=== PATIENT | male | born 1970 | race Caucasian/White ===

== ENCOUNTER 2020-02-08 14:57 | Emergency (ER) | payer OTHER ==
[~2020-02-08] VITALS: Ht 177.8 cm; Wt 99.8 kg
[2020-02-08 15:48] LABS: ABSOLUTE LYMPHOCYTES 0.9 thou/uL (0.8-5.3); ABSOLUTE MONOCYTES 0.3 thou/uL (0.0-1.2); ABSOLUTE NEUTROPHILS 3.1 thou/uL (1.6-8.1); BASOPHILS 0.7 %; EOSINOPHILS 0.3 %; HEMATOCRIT 44.4 % (42.0-52.0); HEMOGLOBIN 15.9 gm/dL (14.0-18.0); LYMPHOCYTES 20.1 %; MCH 32.2 pg (26.0-34.0); MCHC 35.9 g/dL (28.0-37.0); MCV 89.7 fL (80.0-100.0); MONOCYTES 8.1 %; MPV 7.9 fl. (7.2-11.1); NUCLEATED RBCS 0 /100WBC; PLATELET COUNT* 239 thou/uL (150-400); POLYS 70.8 %; RBC 4.95 mil/uL (4.50-6.00); RDW-CV 12.5 % (10.5-14.5); WBC 4.3 thou/uL (4.0-11.0)
[2020-02-08 15:58] LABS: CALCIUM 8.6 mg/dL (8.5-10.1); CREATININE 1.1 mg/dL (0.6-1.3); POTASSIUM 4.2 mmol/L (3.5-5.1)
[2020-02-08 16:03] LABS: ALBUMIN 4.1 g/dL (3.4-5.0); TOTAL BILIRUBIN 0.7 mg/dL (<0.1-1.0); TOTAL PROTEIN 7.3 g/dL (6.4-8.2)
[2020-02-08] MEDS ORDERED: AUGMENTIN 875-1 EACH PO (17:03)
[2020-02-08 17:13] VITALS: BP 112/74
--- NOTE | 2020-02-10 15:32 | EKG ---
[place] [address] ELECTROCARDIOGRAM REPORT Name: MITZY FIORE Room: [facility]#: [id number] Admission: 02/08/20 Attend Phys: Discharge: 02/08/20 Date of : 74 Date of Service: 02/08/20 1505 Report #: [id number] THIS REPORT FOR: //name// [facility] ED Test Date: 2020-02-08 Test Time: 15:05:43 Pat Name: MITZY FIORE Department: Room: Gender: Technical Buyer: [facility] : 1970 Requested By: Filipe Wayne Order Number: [id number] MD: Emmanuel Bates Measurements Intervals [place] Rate: 96 P: 56 UT: 142 QRS: 35 QRSD: 86 T: 40 QT: 315 QTc: 398 Interpretive Statements Sinus rhythm Probable left atrial enlargement No previous ECG available for comparison Electronically Signed On 02-10-2020 15:31:49 CDT by Emmanuel Bates [email or web address] <ELECTRONICALLY SIGNED> By: Emmanuel Bates MD, [facility] 02/10/20 1531 1505 1505 Emmanuel Bates MD, FACC /EPI
== END 2020-02-08 17:14 | disposition home or self-care (01) ==
LOC: M.ERS 14:57
PROVIDERS: Emergency Medicine Emergency Medical Services
DX: J32.9 Chronic sinusitis, unspecified (principal); Z20.828 Contact with and (suspected) exposure to other viral communicable diseases

== ENCOUNTER 2021-03-04 20:31 | Emergency (ER) | payer OTHER ==
[~2021-03-04] VITALS: Ht 177.8 cm; Wt 99.8 kg
[~2021-03-04 20:31] MED LIST: AUGMENTIN 875-1 EACH PO
[2021-03-04] MEDS ORDERED: MEDROLDOSEPACK PO (21:28)
[2021-03-04] MEDS ORDERED: APAP W/CODEINE1 TA2 PO (21:28)
[2021-03-04] MEDS ORDERED: FLEXERIL PO (21:28)
[2021-03-04 21:46] VITALS: BP 154/70
== END 2021-03-04 21:46 | disposition home or self-care (01) ==
LOC: M.ERS 20:31
DX: M54.5 Low back pain (principal)